=== PATIENT | male | born 1960 | race Two or more races ===

== ENCOUNTER 2025-03-04 12:18 | Emergency (ER) | payer OTHER ==
[~2025-03-04] VITALS: Ht 167.6 cm; Wt 97.1 kg
[~2025-03-04 12:18] MED LIST: ALBUTEROL17 GM IH; BRONCOTRON LIQ118 ML PO; CARAFATE SU1 G/10 ML PO; LEVAQUIN500 MG PO; NEXIUM40 MG/PACK PO
[2025-03-04] MEDS ORDERED: TETANUS & DIPHTHERIA TOX,ADULT 0.5 ML VIAL IM ONE (13:15)
== END 2025-03-04 13:46 | disposition home or self-care (01) ==
LOC: ER 12:18
DX: S41.111A Laceration without foreign body of right upper arm, initial encounter (principal); W19.XXXA Unspecified fall, initial encounter; Y93.89 Activity, other specified; Y92.89 Other specified places as the place of occurrence of the external cause; Y99.8 Other external cause status
CPT/HCPCS: 12002; 90471; 90714; J1670

== ENCOUNTER 2025-03-08 08:50 | Emergency (ER) | payer OTHER ==
[~2025-03-08] VITALS: Ht 172.7 cm; Wt 97.1 kg
[2025-03-08] MEDS ORDERED: ENALAPRIL MALEATE 5 MG TABLET PO ONE (11:00)
== END 2025-03-08 12:56 | disposition home or self-care (01) ==
LOC: ER 08:50
DX: Z48.02 Encounter for removal of sutures (principal)

== ENCOUNTER 2025-03-11 08:27 | Outpatient (CLI) | payer OTHER | END 2025-03-11 08:46 | disposition home or self-care (01) | LOC: RAD 08:27 | PROVIDERS: ATTEND Specialist | DX: I10 Essential (primary) hypertension (principal); Z12.11 Encounter for screening for malignant neoplasm of colon; Z12.5 Encounter for screening for malignant neoplasm of prostate; M25.50 Pain in unspecified joint; R52 Pain, unspecified ==

== ENCOUNTER 2025-03-13 07:02 | Outpatient (CLI) | payer OTHER | END 2025-03-13 07:09 | disposition home or self-care (01) | LOC: SONOGRAMA 07:02 | PROVIDERS: ATTEND Specialist | DX: E11.9 Type 2 diabetes mellitus without complications (principal); I10 Essential (primary) hypertension; E80.7 Disorder of bilirubin metabolism, unspecified ==